=== PATIENT | male | born 1940 | race Caucasian/White ===

== ENCOUNTER 2016-09-27 16:37 | Emergency (ER) | payer MEDICARE ==
[2016-09-27] VITALS (8 sets, daily range): BP systolic 89–113; BP diastolic 31–48; PULSE 47–54; RESP 14–22; O2SAT 96–100
[~2016-09-27] VITALS: Ht 182.9 cm; Wt 129.1 kg
--- NOTE | 2016-09-27 16:46 | ED.REPORT ---
HPI-General Illness Date of Service Sep 27, 2016 ED Provider: Charles Mckenna MD Pt is a 76 y.o. male with a hx of COPD, diverticulitis, and cardiac stent who presents to the ED via EMS c/o severe lower back pain rated at a 10 onset prior to arrival. Pt states that he was in the kitchen eating when he had sudden onset weakness, dizziness, lightheadedness, and severe back pain. He was able to sit down, when he attempted to stand up he experienced a near syncopal episode and had weakness and decreased sensation to his bilateral lower extremities. He denies chest and abdominal pain, vomiting, and diarrhea. He reports a recent flu-like illness. He denies hx of NV, stroke, and back pain. Pt had his annual physical exam today. 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 Pt is currently taking atenolol and levothyroxine. Nursing Notes Stated Complaint: LOWER EXTREMITY WEAKNESS Chief Complaint: Neuro Symptoms/ Deficits Nursing Notes Reviewed: Yes Allergies: Uncoded Allergies: antihistamines (Allergy, Unknown, 09/27/16) General Time Seen by MD: 16:39 Chief Complaint Back pain Hx Obtained From: Patient Arrived By: Ambulance Sudden in Onset?: Yes Onset Occurred: Just prior to arrival Symptom Duration: Since onset Location: : Back Severity: Current: Pain level 10 out of 10 Past Medical History Past Medical History Reports: Hypertension Reports: Thyroid disease Past Surgical History None reported Ambulatory Status Independent Review of Systems Full Review of Systems GI: Denies: Abdominal pain, Nausea, Vomiting Musculoskeletal: Reports: Back pain Neurologic: Reports: Dizziness, Lightheaded, Numbness (Lower extremities), Syncope (Near), Weakness Complete sys rev & neg: except as marked. Physical Exam Vital Signs Vital Signs Date Time Temp Pulse Resp B/P Pulse Ox O2 Delivery O2 Flow Rate FiO2 09/27/16 21:13 36.7 54 14 107/41 96 Room Air 09/27/16 19:44 48 16 107/39 100 Room Air 09/27/16 18:35 51 113/42 96 Room Air 09/27/16 18:15 47 98/48 96 Room Air 09/27/16 17:55 47 18 98/39 96 09/27/16 17:26 50 18 89/40 96 Room Air 09/27/16 17:10 36.3 47 09/27/16 16:44 35.2 51 22 92/31 99 Room Air Initial VS: Reviewed Head / Eyes: Atraumatic, Normocephalic Skin: Warm, Dry, No cyanosis Psychiatric: Mood/affect normal, Behavior normal, Normal thought content General/Constitutional: Awake, Alert, Well appearing, Well developed, Well hydrated, Well nourished, Not toxic appearing Appearance / Presentation: Positive: Obese Respiratory / Chest: Atraumatic, Breath sounds NL, Breath sounds = bilat, No respiratory distress, No rales, No rhonchi, No wheezing, No retractions, No stridor Cardiovascular: Regular rhythm, Heart sounds NL, No gallop, No murmurs, No rubs , Peripheral circulation NL Heart Rate / Rhythm: Positive: Bradycardia Palpable dorsalis pedal pulses Abdomen: Atraumatic, Soft, Non-tender, No guarding, No rebound, No distention Back: Atraumatic, Inspection NL, No midline vertebral tend Flank / Spine / Paraspinal: Negative: Lumbar spine tender... Lower Extremity / Pelvis / MS: Atraumatic, Inspection NL, Neurologic intact, Vascular intact Dorsi and plantar flexion intact bilaterally Rectum / Perineum: Atraumatic Rectum / Perineum Abnl: Negative: Saddle anesthesia present Rectal tone normal Neurologic: Oriented X3, Speech NL, No motor deficits Interpretation & Diagnostics Lab Results Interpretation Result Diagram: 09/27/16 1707 09/27/16 1707 Test 09/27/16 16:17 09/27/16 17:07 Hold Arrington Top Tube Received (Received) White Blood Count 10.8th/mm3 (3.8-10.1) Red Blood Count 4.25mil/mm3 (4.40-5.80) Hemoglobin 13.3g/dL (13.8-17.2) Hematocrit 40.5% (41.0-50.0) Mean Corpuscular Volume 95.3fL (81-100) Mean Corpuscular Hemoglobin 31.3pg (27.0-35.0) Mean Corpuscular Hemoglobin Concent 32.8% (32.0-37.0) Red Cell Distribution Width 13.1% (12.3-15.4) Platelet Count 226bil/L (150-400) Neutrophils (%) (Auto) 69.7% (40-74) Lymphocytes (%) (Auto) 20.0% (14-46) Monocytes (%) (Auto) 7.7% (4-12) Eosinophils (%) (Auto) 1.5% (0-5) Basophils (%) (Auto) 0.3% (0-3) Hold Purple Top Tube Received (Received) Prothrombin Time 10.2sec (8.1-12.5) Prothromb Time International Ratio 0.95ratio Hold Blue Top Tube Received (Received) Sodium Level 139mEq/L (134-144) Potassium Level 4.3mEq/L (3.5-5.2) Chloride Level 99mEq/L (97-108) Carbon Dioxide Level 19mmol/L (18-29) Blood Urea Nitrogen 28mg/dL (8-27) Creatinine 1.58mg/dL (0.76-1.27) Estimat Glomerular Filtration Rate 45mL/min (>59) Glucose Level 136mg/dL (60-99) Calcium Level 9.3mg/dL (8.5-10.1) Magnesium Level 2.1mg/dL (1.6-2.6) Total Bilirubin 0.3mg/dL (0.0-1.2) Aspartate Amino Transf (AST/SGOT) 21U/L (0-50) Alanine Aminotransferase (ALT/SGPT) 19U/L (0-44) Alkaline Phosphatase 87U/L (25-160) Troponin T < 0.010ug/L (0.0-0.011) Pro-B-Type Natriuretic Peptide 367.7pg/mL (0-486) Total Protein 6.9g/dL (6.4-8.4) Albumin 3.8g/dL (3.4-5.0) Hold Andes Top Tube Received (Received) Point of Care Testing: Hematocrit low, Troponin normal General Lab Results Interp 1: CBC - leukocytosis, Coag studies NL ECG Interpretation ECG Interpretation: Low voltage No ST segment changes No T-wave abnormalities No prior ECG for comparison Time: 17:48 Normal ECG Interpretation: Normal sinus rhythm Rhythm / Conduction: Bradycardia (rate of 51) X-Ray Chest Interpretation Chest Xray Interpretation: IMPRESSION: Cause of shortness of breath is not appreciated. Acute disease is not seen in the upright portable chest. Dictated by: Corey Butts M.D. on 09/27/2016 at 18:24 Approved by: Corey Butts M.D. 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 Perfusion is a craniotomy vessels from the arch, celiac, SMA and renal arteries. No periaortic hematoma or aneurysmal change other than the left common iliac artery which measures 2.4 cm. In the distal abdominal aorta a flow of contrast along the anterior aspect of the aorta is markedly restricted from the posterior aspect over a distance of approximately 5 cm which ends approximately 3 mass centimeters above the aortic bifurcation. Dictated by: Corey Butts M.D. on 09/27/2016 at 19:29 Approved by: Corey Butts M.D. on 09/27/2016 at 19:29 Re-Eval/Medical Decision Med Decision/Clinical Course In summary, the patient is a 76-year-old male with a history of iliac artery aneurysm, previous cardiac stent, COPD who presents to the emergency department due to acute onset of severe low back pain associated with lower extremity weakness and near syncope. Upon arrival the patient was hypotensive with a blood pressure in the 70s over 40s and bradycardic with a heart rate in the 40s. 2 large-bore IVs were obtained and blood was sent for type and screen. Fluid bolus was administered. Due to concern for possible aortic dissection CT aortogram was ordered upon arrival. Of note the patient reported profound lower 70 weakness and paresthesias which had significantly improved. On arrival and during his emergency department stay he reported complete resolution of his lower extremity weakness and sensory deficits. Chest x-ray was obtained and was essentially unremarkable without any evidence of widened mediastinum. EKG was obtained interpreted by myself as documented above. Laboratory studies were notable as below: Leukocytosis 10.8 Hematocrit 40.5 CBC unremarkable otherwise Coag normal BUN 28 Creatinine 1.58 Trop neg Aortogram was notable for aortic dissection extending from their decreased into the abdominal aorta. He immediately began to arrange for transport to a facility with vascular surgery capabilities. The patient remained borderline hypotensive with a blood pressure in the 90s over 40s though had good mentation. We maintained permissive hypertension in the setting of his significant dissection. The case was discussed with the vascular surgeon at [facility] Dr. Perales, (vascular surgery) they have accepted the patient for transfer and plan for operative intervention tonight. EMTALA date was completed and the patient consented to transfer. Per discussion with accepting vascular surgeon the patient was transferred by ALS ambulance as opposed to helicopter as they stated that they would not be ready to accept the patient for 1 hour 20 minutes from time of acceptance. The patient was transferred in critical though at this time stable condition. Source of Hx: Old records Time of Eval: 19:20 Re-Evaluation/Progress Note: Pt rechecked. Pt is feeling improved. Informed pt of dx and need for transfer. Consultation #1: Call Returned at: 17:16 Note: Consulted with radiology, recommended angio aorta CT and MRI. Consultation #2: Call Returned at: 19:40 Note: Consulted transfer center, will return call. Consultation #3: Call Returned at: 19:59 Note: Returned call. Dr. Perales, vascular surgeon, tentatively accepts admit. Consultation #4: Call Returned at: 20:14 Note: Returned call. Dr. Perales accepts admit, can receive pt in OR at 2130, requests ALS ground. Counseled Regarding: Diagnosis, Lab results, Need for follow-up, When/why to return to ED, Need for transfer Discharge & Departure Primary Impression: Aortic dissection Aortic location: thoracoabdominal aorta Qualified Code: I71.03 - Dissection of thoracoabdominal aorta Additional Impressions: Hypotension Hypotension type: unspecified hypotension type Qualified Code: I95.9 - Hypotension, unspecified Bradycardia Back pain Back pain location: low back pain Chronicity: acute Back pain laterality: unspecified Sciatica presence: without sciatica Qualified Code: M54.5 - Low back pain Lower extremity weakness Laterality: bilateral Qualified Code: M62.81 - Muscle weakness (generalized) Acute kidney injury Disposition: Transfer, Acute Care Facility Receiving Hospital: , Dr. Perales Transfer Accepted: Yes Transfer Accepted at: 20:14 Transfer Reason: Higher level of care Spoke with: Specialty physician Patient Status: Stable for transfer Patient Informed: Yes Discharge Condition All VS Reviewed: Yes Condition: Stable Crit Care Except Billable Proc Time Spent: 165-194 minutes Services Performed: Patient management by me, Time spent at bedside, Reviewing test results, Reviewing imaging, Discussing patient care, Documentation in record, Time with fam/surrogate Critical Care Notes: Arranging transfer, discussing with vascular surgery Scribe Attestation Portions of this note were transcribed by Ervin Bello. I, Dr. Mckenna personally performed the history, physical exam and medical decision-making; I reviewed and confirmed the accuracy of the information in the transcribed note. Signed by: Ca Mcpherson, 09/27/2016 and 2104. Charles Mckenna MD Sep 27, 2016 16:46 ERVIN BELLO Sep 27, 2016 17:12
[2016-09-27] MEDS ORDERED: 0.9% Sodium Chloride 1,000 ML IV ONE (17:13)
[2016-09-27 17:42] LABS: BASOPHILS % (AUTO) 0.3 % (0-3); EOSINOPHILS % (AUTO) 1.5 % (0-5); MONOCYTES % (AUTO) 7.7 % (4-12); Mean Corpuscular Hemoglobin 31.3 pg (27.0-35.0); Mean Corpuscular Volume 95.3 fL (81-100); NEUTROPHILS % (AUTO) 69.7 % (40-74); Platelet Count 226 bil/L (150-400)
[2016-09-27 17:52] LABS: INR 0.95 ratio
[2016-09-27 18:05] LABS: TROPONIN T < 0.010 ug/L (0.0-0.011)
[2016-09-27] MEDS ORDERED: Ondansetron 2 mg/mL 2 mL Inj ONE (18:06)
[2016-09-27 18:25] LABS: Magnesium 2.1 mg/dL (1.6-2.6)
--- NOTE | 2016-09-27 18:26 | DRSVH ---
PROCEDURE: X-RAY CHEST ONE VIEW, PORTABLE ([id number]) INDICATIONS: SHORTNESS OF BREATH TECHNIQUE: One view of the chest was acquired. COMPARISON: None. 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 Lungs and pleura: No pleural effusions or pneumothorax. Lungs appear hyperinflated. No focal consoli dation, failure or fluid collection is seen. Mediastinum: Mediastinal contours appear normal. Heart size is normal. Bones and chest wall: No suspicious bony lesions. Overlying soft tissues appear unremarkable. IMPRESSION: Cause of shortness of breath is not appreciated. Acute disease is not seen in the upright portable chest. Dictated by: Corey Butts M.D. on 09/27/2016 at 18:24 Approved by: Corey Butts M.D. on 09/27/2016 at 18:24
--- NOTE | 2016-09-27 19:31 | DRSVH ---
PROCEDURE: CT ANG CHEST/ABD W/WO CONTRAST ([id number]) INDICATIONS: SUDDEN SEVERE BACK PAIN AND WEAKNESS IN LEGS, DISS TECHNIQUE: Precontrast 5 mm thick sections acquired from the lung apices to the iliac crests. After the adminis tration of intravenous contrast, 3 mm thick sections again acquired from the lung apices to the iliac crests. 3-dimensional maximum intensity projection (MIP) oblique sagittal and coronal reformats wer e then acquired, and/or 3-dimensional volume rendering reformats. For radiation dose reduction, the following was used: automated exposure control. COMPARISON: None. FINDINGS: Image quality: Excellent. AORTA: Intramural hematoma: Absent in the thoracic aorta possibly present posteriorly in the mid to distal a bdominal aorta Dissection: Aortic dissection is present from the aortic valve into the ascending transverse and desc ending aortas to just above the aortic bifurcation. Sherif classification: Vulcan classification would be A Maximum aortic diameter: 4.7 cm in the ascending aorta. Periaortic hematoma: Absent. CHEST: Lungs and pleura: No acute airspace opacities. There is some scarring change in the region of the ri ght middle lobe and lingula. No pleural effusions or pneumothorax. Central and peripheral airways ar e patent and normal in caliber. Mediastinum: Heart size is normal. No pericardial effusion. No mediastinal or hilar adenopathy by size criteria. Central pulmonary arteries are normal in size. Esophagus is normal in caliber. No h iatal hernias. Bones and chest wall: No axillary adenopathy by size criteria. Thyroid gland is within normal limit s.. No suspicious bony lesions. No vertebral body compression fractures. ABDOMEN: Vasculature: Celiac trunk and mesenteric arteries are patent. Renal arteries are also patent. Solid organs: Liver and spleen are normal in size. Gallbladder shows at least one small gallstone.. Biliary system is non dilated. Pancreas enhances normally. No adrenal nodules. Both kidneys are normal in size and enhancement, without hydronephrosis. Peritoneum and bowel: No free fluid or air. Bowel loops are normal in caliber and wall thickness. Nodes and vessels: No retroperitoneal or mesenteric adenopathy by size criteria. Inferior vena cava is normal in morphology. There is borderline aneurysmal change of the left common iliac artery at 2. 4 cm diameter. Bones: No suspicious bony lesions. No vertebral body compression fractures. Miscellaneous: There is a fatty ventral hernia just supraumbilical in position. 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 Perfusion is a craniotomy vessels from the arch, celiac, SMA and renal arteries. No periaortic hematoma or aneurysmal change other than the left common iliac artery which measures 2. 4 cm. In the distal abdominal aorta a flow of contrast along the anterior aspect of the aorta is markedly r estricted from the posterior aspect over a distance of approximately 5 cm which ends approximately 3 mass centimeters above the aortic bifurcation. Dictated by: Corey Butts M.D. on 09/27/2016 at 19:29 Approved by: Corey Butts M.D. on 09/27/2016 at 19:29
[2016-09-27] MEDS ORDERED: MetoCLOpramide 5 mg/mL 2 mL Inj IVPUSH PRN (20:25)
== END 2016-09-27 20:55 | disposition short-term general hospital (02) ==
LOC: SED 16:37 → EDBD 16:37 → SED 20:55
DX: I71.03 Dissection of thoracoabdominal aorta (principal); I95.9 Hypotension, unspecified; R00.1 Bradycardia, unspecified; M54.5 Low back pain; M62.81 Muscle weakness (generalized); N17.9 Acute kidney failure, unspecified; J44.9 Chronic obstructive pulmonary disease, unspecified; K57.92 Diverticulitis of intestine, part unspecified, without perforation or abscess without bleeding; I10 Essential (primary) hypertension; E07.9 Disorder of thyroid, unspecified; Z95.818 Presence of other cardiac implants and grafts; Z88.8 Allergy status to other drugs, medicaments and biological substances
CPT/HCPCS: 36415; 71010; 71275; 74175; 80053; 83735; 83880; 84484; 85025; 85610; 86850; 93005; 96361; 96374; 99285; J2405; J7030; Q9967